=== PATIENT | male | born 1960 | race American Indian/Alaskan Native ===

== ENCOUNTER 2017-01-13 18:02 | Emergency (ER) | payer MEDICAID ==
[2017-01-13 19:00] LABS: Basophils % (Auto) 0.8 % (0.0-1.8); Eosinophils % (Auto) 5.7 % (0.0-4.3); Hematocrit 40.1 % (35.5-45.6); Hemoglobin 13.4 gm/dl (11.8-15.2); Mean Corpuscular HGB Conc 33 % (32-34); Mean Corpuscular Hemoglobin 27 pg (28-32); Mean Corpuscular Volume 81 fl (84-94); Platelet Count 176 K/mm3 (140-440); Red Blood Count 4.96 M/mm3 (3.65-5.03); Red Cell Distribution Width 16.7 % (13.2-15.2); White Blood Count 8.1 K/mm3 (4.5-11.0)
[2017-01-13 19:11] LABS: Anion Gap 18 mmol/L; Blood Urea Nitrogen 14 mg/dL (9-20); Calcium 8.7 mg/dL (8.4-10.2); Carbon Dioxide 24 mmol/L (22-30); Chloride 102.7 mmol/L (98-107); Glucose 189 mg/dL (75-100); Potassium 4.1 mmol/L (3.6-5.0); Sodium 141 mmol/L (137-145)
[2017-01-13] MEDS ORDERED: TORADOL IM ONE (23:14)
--- NOTE | 2017-01-13 23:15 | Emergency Department Report ---
ED General Adult HPI - General Chief complaint: Chest Pain Stated complaint: CHEST PAIN Time Seen by Provider: 01/13/17 22:20 Source: patient, RN notes reviewed Mode of arrival: Ambulatory Limitations: No Limitations - History of Present Illness Initial comments: This is a 56-year-old male. He is previously unknown to me. Has a past medical history of HIV. He is currently on highly active antiretroviral therapy. He reports his viral load is undetectable, and that he has a "good" CD4 count. The patient presents to the ER with 3 weeks of left-sided chest pain. Chest pain is achy. It does not radiates to the back, arms or neck. There is no vomiting, diaphoresis or shortness of breath. There is no leg pain. There is no leg swelling. No recent trips greater than 4 hours, no recent hospital admissions. His pain is not worse today. he came to the ER today at the insistence/recommendation of his family member/ . -: Gradual, week(s) Location: chest Radiation: non-radiation Severity scale (0 -10): 4 Quality: aching Consistency: intermittent Improves with: none Worsens with: none Associated Symptoms: denies: confusion, chest pain, cough, diaphoresis, fever/ chills, headaches, loss of appetite, malaise, nausea/vomiting, rash, seizure, shortness of breath, syncope, weakness - Related Data Allergies Allergy/AdvReac Type Severity Reaction Status Date / Time No Known Allergies Allergy Unverified 01/13/17 18:17 ED Review of Systems ROS: Stated complaint: CHEST PAIN Other details as noted in HPI Constitutional: denies: fever, malaise Eyes: denies: vision change ENT: denies: epistaxis Respiratory: denies: cough Cardiovascular: chest pain Gastrointestinal: denies: abdominal pain, nausea, vomiting Genitourinary: denies: urgency, dysuria Musculoskeletal: denies: back pain Skin: denies: lesions Neurological: denies: headache, weakness ED Past Medical Hx - Past Medical History Previous Medical History?: No - Surgical History Past Surgical History?: No - Social History Smoking Status: Current Every Day Smoker Substance Use Type: None ED Physical Exam - General Limitations: No Limitations General appearance: alert, in no apparent distress - Head Head exam: Present: atraumatic, normocephalic - Eye Eye exam: Present: normal appearance, EOMI. Absent: nystagmus - ENT ENT exam: Present: normal exam, normal orophraynx, mucous membranes moist, normal external ear exam - Neck Neck exam: Present: normal inspection, full ROM. Absent: tenderness, meningismus - Respiratory Respiratory exam: Present: normal lung sounds bilaterally. Absent: respiratory distress, wheezes, rales, rhonchi, stridor, decreased breath sounds - Cardiovascular Cardiovascular Exam: Present: regular rate, normal rhythm, normal heart sounds. Absent: bradycardia, tachycardia, irregular rhythm, systolic murmur, diastolic murmur, rubs, gallop - GI/Abdominal GI/Abdominal exam: Present: soft, normal bowel sounds. Absent: distended, tenderness, guarding, rebound, rigid, pulsatile mass - Rectal Rectal exam: Present: deferred - Extremities Exam Extremities exam: Present: normal inspection, full ROM, normal capillary refill. Absent: tenderness, pedal edema, joint swelling, calf tenderness - Back Exam Back exam: Present: normal inspection, full ROM. Absent: tenderness, CVA tenderness (R), CVA tenderness (L), muscle spasm, paraspinal tenderness, vertebral tenderness - Neurological Exam Neurological exam: Present: alert, oriented X3, normal gait, other (Extraocular movements intact. Tongue midline. No facial droop. Facial sensation intact to light touch in the V1, V2, V3 distribution bilaterally. 5 and 5 strength in 4 extremities.. Sensation is intact to light touch in 4 extremities.). Absent : motor sensory deficit - Psychiatric Psychiatric exam: Present: normal affect, normal mood - Skin Skin exam: Present: warm, dry, intact, normal color. Absent: rash ED Course Vital Signs 01/13/17 01/13/17 01/13/17 18:17 22:30 22:45 Temperature 98.4 F Pulse Rate 63 60 Respiratory 18 18 18 Rate Blood Pressure 115/66 Blood Pressure 117/77 [Left] O2 Sat by Pulse 97 97 100 Oximetry 01/13/17 23:31 Temperature Pulse Rate Respiratory 18 Rate Blood Pressure Blood Pressure [Left] O2 Sat by Pulse Oximetry - Reevaluation(s) Reevaluation #1: 01/14/17 01:22 Differential diagnosis: GERD, gastritis, costochondritis, pneumonia, acute coronary syndrome, pulmonary embolus assessment and plan: 56-year-old male with 3 weeks of atypical chest pain. No risk by KUSH score, low risk by heart score, low risk by well's criteria, d- dimer negative, EKG morphologically unremarkable 2, troponin negative 3. Patient appears quite comfortable, he is been observed in the ER for a prolonged period of time, and he felt improved after minimally conservative symptomatically therapy. Given the symptoms have been present for 3 weeks, I don't believe he requires admission to the hospital for acute coronary syndrome risk stratification. He is instructed to follow up with outpatient cardiology or primary care for further evaluation and management. He felt improved after pain medication. He will be discharged at this time. Return precautions were extensively reviewed. Reevaluation #2: 01/14/17 01:26 Extensive discussion had with patient and family, given current objective data points, they understand patient at low risk for major adverse cardiac event. ED Medical Decision Making - Lab Data Result diagrams: 01/13/17 18:35 01/13/17 18:35 Vital Signs 01/13/17 01/13/17 01/13/17 18:17 22:30 22:45 Temperature 98.4 F Pulse Rate 63 60 Respiratory 18 18 18 Rate Blood Pressure 115/66 Blood Pressure 117/77 [Left] O2 Sat by Pulse 97 97 100 Oximetry 01/13/17 23:31 Temperature Pulse Rate Respiratory 18 Rate Blood Pressure Blood Pressure [Left] O2 Sat by Pulse Oximetry Labs 01/13/17 01/13/17 01/13/17 18:35 18:35 20:45 WBC 8.1 RBC 4.96 Hgb 13.4 Hct 40.1 MCV 81 L MCH 27 L MCHC 33 RDW 16.7 H Plt Count 176 Lymph % (Auto) 32.8 Angelina % (Auto) 9.5 H Eos % (Auto) 5.7 H Baso % (Auto) 0.8 Lymph # 2.7 Angelina # 0.8 Eos # 0.5 H Baso # 0.1 Seg Neutrophils % 51.2 Seg Neutrophils # 4.1 PT INR D-Dimer Sodium 141 Potassium 4.1 Chloride 102.7 Carbon Dioxide 24 Anion Gap 18 BUN 14 Creatinine 1.0 Estimated GFR > 60 BUN/Creatinine Ratio 14.00 Glucose 189 H Calcium 8.7 Troponin T < 0.010 < 0.010 01/14/17 01/14/17 00:20 00:20 WBC RBC Hgb Hct MCV MCH MCHC RDW Plt Count Lymph % (Auto) Angelina % (Auto) Eos % (Auto) Baso % (Auto) Lymph # Angelina # Eos # Baso # Seg Neutrophils % Seg Neutrophils # PT 14.3 INR 1.12 D-Dimer < 135.00 Sodium Potassium Chloride Carbon Dioxide Anion Gap BUN Creatinine Estimated GFR BUN/Creatinine Ratio Glucose Calcium Troponin T < 0.010 - EKG Data EKG shows normal: sinus rhythm, axis, intervals, QRS complexes, ST-T waves Rate: bradycardia - EKG Data When compared to previous EKG there are: previous EKG unavailable 01/14/17 01:23 EKG #1 demonstrates sinus , 62 bpm, normal intervals, normal axis, not morphologically consistent with STEMI. EKG #2 demonstrates bradycardia, 53 bpm, normal intervals, normal axis, not consistent with STEMI. Isolated T-wave inversions are noted in lead aVL on EKG #1 and 2, these are unchanged. - Radiology Data Radiology results: image reviewed interpreted by me: X-ray of the chest negative for acute disease. Critical care attestation.: If time is entered above; I have spent that time in minutes in the direct care of this critically ill patient, excluding procedure time. ED Disposition Clinical Impression: Chest pain Disposition: DISCHARGED TO HOME OR SELFCARE Is pt being admited?: No Does the pt Need Aspirin: No Condition: Stable Instructions: Chest Pain (ED) Additional Instructions: Continue current outpatient medications. 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 Dr. Smita Silva is a local primary care doctor. Misael Crenshaw and Esperanza are local university extension specialist. Take Tylenol every 4 hours or Motrin every 6 hours as needed for pain. Return to the ER right away with new pain, worsened pain, migration of pain, fevers or chills, intractable nausea or vomiting, inability to tolerate liquid feeds. Referrals: PRIMARY CARE, [Primary Care Provider] - 3-5 Days SMITA SILVA MD [Staff Physician] - 3-5 Days UCHE CRENSHAW MD [Staff Physician] - 3-5 Days BEE SNYDER MD [Staff Physician] - 3-5 Days
[2017-01-14 01:06] LABS: INR 1.12 (0.87-1.13)
[2017-01-14 01:36] VITALS: BP 120/66
--- NOTE | 2017-01-14 07:44 | XRay Report ---
Chest 2 views: History: Chest pain. Findings: Normal cardiomediastinal silhouette. Trachea is midline. No consolidation, pneumothorax or pleural effusion. Impression: No acute cardiopulmonary findings.
== END 2017-01-14 01:36 | disposition home or self-care (01) ==
LOC: ED 18:02
DX: R07.9 Chest pain, unspecified (principal); F17.200 Nicotine dependence, unspecified, uncomplicated
CPT/HCPCS: 36415; 71020; 80048; 84484; 85025; 85379; 85610; 93005; 93010; 96372; 99285; J1885

== ENCOUNTER 2020-12-24 13:51 | Emergency (ER) | payer MEDICAID ==
[2020-12-24 14:31] VITALS: BP 112/65
== END 2020-12-24 14:48 | disposition left against medical advice (07) ==
LOC: ED 13:51
DX: Z04.1 Encounter for examination and observation following transport accident (principal); Z53.21 Procedure and treatment not carried out due to patient leaving prior to being seen by health care provider

== ENCOUNTER 2021-01-03 16:55 | Emergency (ER) | payer MEDICAID ==
--- NOTE | 2021-01-03 17:05 | Event Note ---
ED Screening Note ED Screening Note: diabetic with reports inc blood sugar endorses weakness This initial assessment/diagnostic orders/clinical plan/treatment(s) is/are subject to change based on patients health status, clinical progression and re- assessment by fellow clinical providers in the ED. Further treatment and workup at subsequent clinical providers discretion. Patient/guardian urged not to elope from the ED as their condition may be serious if not clinically assessed and managed. Initial orders include: labs ua
[2021-01-03 17:44] LABS: Hematocrit 36.8 % (35.5-45.6); Hemoglobin 12.2 gm/dl (11.8-15.2); Mean Corpuscular HGB Conc 33 % (32-34); Mean Corpuscular Volume 77 fl (84-94); Platelet Count 228 K/mm3 (140-440); Red Blood Count 4.75 M/mm3 (3.65-5.03); Red Cell Distribution Width 15.5 % (13.2-15.2)
[2021-01-03 17:57] LABS: Alanine Aminotransferase 31 units/L (7-56); Albumin 3.6 g/dL (3.9-5); BUN/Creatinine Ratio 18; Blood Urea Nitrogen 16 mg/dL (9-20); Calcium 9.1 mg/dL (8.4-10.2); Hemolysis Index 16
--- NOTE | 2021-01-03 18:06 | XRay Report ---
CHEST 2 VIEWS INDICATION / CLINICAL INFORMATION: weak. Chest pain with dyspnea. FINDINGS: SUPPORT DEVICES: None. HEART / MEDIASTINUM: No significant abnormality. LUNGS / PLEURA: There are multiple nodules scattered throughout the left in right lung that appear at least partially calcified. This is similar to 01/13/2017. No acute airspace disease identified. ADDITIONAL FINDINGS: No significant additional findings. IMPRESSION: 1. No acute findings. Signer Name: Miguel Sweeney MD Signed: 01/03/2021 6:02 PM Workstation Name: [id number]
[2021-01-03 18:31] LABS: Total Cells Counted 100
[2021-01-03 18:33] LABS: Anisocytosis 1+; Platelet Estimate Consistent w Auto; Target Cells Few
[2021-01-03 18:52] LABS: Bilirubin,Urine NEG (Negative); Blood,Urine NEG (Negative); Color,Urine Yellow (Yellow); Protein,Urine <15 mg/dL mg/dL (Negative); Urobilinogen,Urine < 2.0 mg/dL (<2.0)
--- NOTE | 2021-01-03 19:27 | Emergency Department Report ---
ED General Adult HPI - General Chief complaint: Hyperglycemia Stated complaint: SUGAR HIGH Time Seen by Provider: 01/03/21 17:05 Source: patient Mode of arrival: Ambulatory Limitations: No Limitations - History of Present Illness Initial comments: 60-year-old male patient with history of diabetes presents to the emergency department with complaints of elevated blood glucose levels over the last few weeks. Patient states he was recently discharged from [facility] and was sent home with new parenteral medications for glycemic control. However, he has forgotten how often to take them and how to dose them. He has also run out of his Metformin. He has not established care with a local primary care provider. He has come to the emergency department to receive counseling on his medications and arrange for a referral to an outpatient grinding machine operator. He is asymptomatic; aside from his intermittently elevated blood glucose level, he has no complaints. - Related Data Previous Rx's Medication Instructions Recorded Last Taken Type Metformin HCl [metFORMIN] 1,000 mg PO BID #14 tablet 01/03/21 Unknown Rx Allergies Allergy/AdvReac Type Severity Reaction Status Date / Time No Known Allergies Allergy Unverified 01/13/17 18:17 ED Review of Systems ROS: Stated complaint: SUGAR HIGH Other details as noted in HPI GENERAL: Negative for fever, chills, weight change, anorexia, fatigue. ENT: Negative for ear pain, difficulty hearing, sore throat, nasal congestion, epistaxis. CARDIOVASCULAR: Negative for chest pain, palpitations, lower extremity swelling. PULMONARY: Negative for cough, dyspnea, wheezing, orthopnea, cyanosis. GASTROINTESTINAL: Negative for abdominal pain, nausea, vomiting, diarrhea, constipation. MUSCULOSKELETAL: Negative for joint pain, joint swelling, myalgias, back pain, neck pain. NEUROLOGICAL: Negative for headache, seizure, syncope, paresthesias, weakness. INTEGUMENTARY: Negative for erythema, rash, diaphoresis, laceration, ecchymosis. HEMATOLOGICAL: Negative for hemoptysis, hematemesis, hematochezia, hematuria. PSYCHIATRIC: Negative for hallucinations, suicidal ideation, homicidal ideation, anxiety, depression. ED Past Medical Hx - Past Medical History Previous Medical History?: Yes Hx Diabetes: Yes Hx HIV: Yes - Surgical History Past Surgical History?: No - Social History Smoking Status: Current Every Day Smoker Substance Use Type: None - Medications Home Medications: Home Medications Medication Instructions Recorded Confirmed Last Taken Type Metformin HCl [metFORMIN] 1,000 mg PO BID #14 tablet 01/03/21 Unknown Rx ED Physical Exam - General Limitations: No Limitations - Other Other exam information: General: Awake, appropriately interactive, no acute distress. Neck: Supple. Full range of motion intact. Cardiovascular: Normal peripheral perfusion. Pulmonary: No respiratory distress. Patient is speaking normally without use of accessory muscles. Skin: No apparent rashes or lesions. Neurological: No facial asymmetry. Speech is clear. Follows commands. Patient is alert and oriented. Musculoskeletal: Moves all four extremities spontaneously with normal range of motion. Psych: Cooperative. Appropriate mood and affect. ED Course Vital Signs 01/03/21 01/03/21 01/03/21 17:06 18:17 18:18 Temperature 97.7 F Pulse Rate 70 61 Respiratory 15 18 18 Rate Blood Pressure 115/65 Blood Pressure 103/64 [Left] O2 Sat by Pulse 99 98 Oximetry 01/03/21 19:43 Temperature Pulse Rate 60 Respiratory 18 Rate Blood Pressure Blood Pressure 119/71 [Left] O2 Sat by Pulse 99 Oximetry ED Medical Decision Making - Lab Data Result diagrams: 01/03/21 17:30 01/03/21 17:30 - EKG Data EKG shows sinus bradycardia with a ventricular rate of 57 bpm. Normal axis. Normal WI interval. Normal QT interval. Good R wave progression. No ST segment changes. Overread by attending emergency physician, who agrees with this interpretation. 01/03/21 19:18 - Medical Decision Making Differential diagnosis including but not limited to: DKA, HHS, dehydration, electrolyte abnormality, hypoglycemia Patient presents to emergency department with complaints of difficulty controlling his glucose levels. He is asymptomatic. He was recently discharged from another hospital and he is unclear on proper use of his diabetes medications. He did not bring these medications with him and he does not have them written down. He is noted to be hyperglycemic in the emergency department however his pH is normal, his bicarbonate is normal, he is ketone negative, and the remainder of his electrolytes are within normal limits. Clinically, he appears well-hydrated. Vital signs are stable. He is tolerating p.o. without difficulty. No clinical evidence to suggest diabetic related emergency. It was explained to the patient that there is no clinical indication for emergently lowering his blood sugar at this time. Patient states that he is out of his Metformin. He will be discharged home with a prescription for refill of his Metformin however he has been advised that he will need to contact the hospital he was discharged from for further instructions regarding the remainder of his diabetes medications involving insulin. Emphasized the importance of following up with outpatient grinding machine operator to monitor his progress. Referral to local grinding machine operator provided. Encouraged lifestyle modifications and emphasized the importance of restricting his dietary sugar intake particularly while he addresses the issues with his medications. Patient expressed understanding was agreeable to plan of care. Strict return precautions provided. Repeat exam is unremarkable and benign. History, exam, diagnostic testing, and current condition do not suggest worrisome pathology to warrant further testing, continued ED treatment, admission, or surgical evaluation at this point. Given the low probability of a significant medical illness, it would be more likely to result in harm than benefit to perform further testing at this stage. Discussed findings, presumptive diagnosis, need for follow-up and specific signs/symptoms that should prompt immediate return to the emergency department. Instructions were explained in detail to the patient in addition to giving written discharge information. Patient expressed understanding and was given the opportunity to ask questions, all of which were satisfactorily answered prior to discharge home. Critical care attestation.: If time is entered above; I have spent that time in minutes in the direct care of this critically ill patient, excluding procedure time. ED Disposition Clinical Impression: Hyperglycemia due to type 2 diabetes mellitus Qualifiers: Diabetes mellitus rodent exterminator insulin use: unspecified custodial insulin use status Qualified Code(s): E11.65 - Type 2 diabetes mellitus with hyperglycemia Disposition: - TO HOME OR SELFCARE Is pt being admited?: No Does the pt Need Aspirin: No Condition: Stable Instructions: Type 2 Diabetes Mellitus, Self Care, Adult, [id number], Diabetes Mellitus Type 2 in Adults (ED) Additional Instructions: Take Metformin as previously directed. Please call [facility] tomorrow to receive verbal instructions on how to take your other medications. Maintain a low-sodium/high protein diet. Avoid consuming excess sugar. Check your blood glucose regularly. Keep a written log of your blood sugar levels. Follow-up with primary care provider next week. Call Wednesday to schedule an appointment. Return to the emergency department immediately for new or worsening symptoms. Specifically, return to the emergency department immediately for dehydration, vomiting, abdominal pain, mental status changes, seizures, increased thirst/urination, difficulty breathing, or any other concerns. Prescriptions: Metformin HCl [metFORMIN] 1,000 mg PO BID #14 tablet Referrals: SMITA SILVA MD [Staff Physician] - 3-5 Days Time of Disposition: 19:30
[2021-01-03 19:43] VITALS: BP 119/71
== END 2021-01-03 19:43 | disposition home or self-care (01) ==
LOC: ED 16:55
DX: E11.65 Type 2 diabetes mellitus with hyperglycemia (principal); F17.200 Nicotine dependence, unspecified, uncomplicated; Z79.84 Long term (current) use of oral hypoglycemic drugs; Z21 Asymptomatic human immunodeficiency virus [HIV] infection status
CPT/HCPCS: 36415; 71046; 80053; 81001; 82010; 82140; 82805; 82962; 84484; 85007; 85025; 93005